=== PATIENT | female | born 1965 | race Caucasian/White ===

== ENCOUNTER 2020-08-09 02:04 | Emergency (ER) | payer OTHER ==
[2020-08-09 02:46] LABS: BASOPHIL 0.5 % (0-2); EOSINOPHIL 3.5 & (0-5); HCT 38.2 % (37.0-47.0); HGB 12.6 g/dl (12.5-16.0); LYMPHOCYTE 21.5 % (15-48); MCH 32.1 pg (25.0-31.0); MCV 97.4 fL (78.0-100.0); MONOCYTE 9.8 % (0-12); MPV 8.9 fL (6.0-9.5); NEUTROPHIL 64.6 % (41-80); PLT 266 K/uL (150-400); RBC 3.92 M/uL (4.20-5.40); RDW 12.6 % (11.5-14.0); WBC 7.48 K/uL (4.0-10.5)
[2020-08-09 02:56] LABS: INR 1.06 (0.9-1.2); PROTHROMBIN TIME 13.1 SECONDS (11.4-13.6); PTT 30.4 SECONDS (22.2-34.7)
[2020-08-09 03:04] LABS: ALBUMIN 3.8 g/dL (3.4-5.0); BILIRUBIN - TOTAL 0.3 mg/dL (0.2-1.0); BUN/CREAT RATIO (CALC) 27.4 RATIO; CREATININE 0.62 mg/dL (0.51-0.95); GLOBULIN (CALCULATION) 3.3 g/dL; TOTAL PROTEIN 7.1 g/dL (6.4-8.2)
[2020-08-09] MEDS ORDERED: CYCLOBENZAPRINE10 MG PO (06:01)
[2020-08-09] MEDS ORDERED: IBUPROFEN800 MG PO (06:01)
[2020-08-09] MEDS ORDERED: MEDROL 4MG DOSEP4 MG PO (06:01)
[2020-08-09] MEDS ORDERED: ZPAK PO (06:01)
[2020-08-09] MEDS ORDERED: PERCOCET 5-3251 EACH PO (06:01)
== END 2020-08-09 06:27 | disposition home or self-care (01) ==
LOC: FER 02:04
PROVIDERS: Emergency Medicine Emergency Medical Services
DX: R09.1 Pleurisy (principal); J43.2 Centrilobular emphysema; F17.210 Nicotine dependence, cigarettes, uncomplicated; Z87.09 Personal history of other diseases of the respiratory system
CPT/HCPCS: 36415; 71045; 71275; 80053; 84484; 85025; 85379; 85610; 85730; 93005; J1170; J1885; J2405; J2930; Q9967

== ENCOUNTER 2020-08-14 00:29 | Emergency (ER) | payer OTHER ==
[~2020-08-14 00:29] MED LIST: CYCLOBENZAPRINE10 MG PO; IBUPROFEN800 MG PO; MEDROL 4MG DOSEP4 MG PO; PERCOCET 5-3251 EACH PO; ZPAK PO
[2020-08-14 02:50] LABS: BASOPHIL 0.8 % (0-2); EOSINOPHIL 3.3 % (0-5); HCT 41.6 % (37.0-47.0); HGB 14.3 g/dl (12.5-16.0); LYMPHOCYTE 11.5 % (15-48); MCH 33.3 pg (25.0-31.0); MCHC 34.4 g/dL (32.0-36.0); MONOCYTE 8.5 % (0-12); MPV 9.5 fL (6.0-9.5); NEUTROPHIL 74.7 % (41-80); NRBC 0; PLT 243 K/uL (150-400); RBC 4.29 M/uL (4.20-5.40); RDW 12.6 % (11.5-14.0)
[2020-08-14 02:51] LABS: BUN/CREAT RATIO (CALC) 34.9 RATIO; CREATININE 0.63 mg/dL (0.51-0.95); POTASSIUM 3.7 mmol/L (3.5-5.1)
[2020-08-14] MEDS ORDERED: PERCOCET 10-321 EACH PO (03:32)
[2020-08-14] MEDS ORDERED: ZOVIRAX800 MG PO (03:32)
[2020-08-14] MEDS ORDERED: NEURONTIN100 MG PO (03:32)
== END 2020-08-14 03:49 | disposition home or self-care (01) ==
LOC: FER 00:29
PROVIDERS: Emergency Medicine Emergency Medical Services
DX: B02.9 Zoster without complications (principal); R07.89 Other chest pain; F17.210 Nicotine dependence, cigarettes, uncomplicated
CPT/HCPCS: 36415; 71045; 80048; 84484; 85025; 93005; J1170; J1885